=== PATIENT | male | born 1995 | race African-American/Black ===

== ENCOUNTER 2017-03-05 09:22 | Day surgery (SDC) | payer OTHER ==
[2017-03-04 14:23] VITALS: BMI 24.4
[2017-03-05] MEDS ORDERED: Midazolam HCl 2 mg/2 ml Vial ONE (09:49)
[2017-03-05] MEDS ORDERED: Fentanyl 100 MCG/2 ML VIAL ONE (09:49)
[2017-03-05] MEDS ORDERED: Diprivan 20 ML ONE (10:23)
[2017-03-05] MEDS ORDERED: diphenhydrAMINE HCl 50 MG/ML 1 ML VIAL ONE (10:52)
[2017-03-05] MEDS ORDERED: Lidocaine 1% PF 5 ML VIAL ONE (10:52)
[2017-03-05] MEDS ORDERED: Propofol 200 MG/20 ML VIAL ONE (10:52)
[2017-03-05] MEDS ORDERED: Ketorolac Tromethamine 30 MG/ML VIAL ONE (10:52)
[2017-03-05] MEDS ORDERED: Ondansetron HCl/PF 4 MG/2 ML Vial ONE (10:52)
[2017-03-05] MEDS ORDERED: Dexamethasone 20 MG/5 ML VIAL ONE (10:52)
[2017-03-05] MEDS ORDERED: Metoclopramide HCl 10 MG/2 ML VIAL ONE (10:52)
--- NOTE | 2017-03-05 13:06 | OP ---
DATE OF OPERATION: 03/05/2017 PREOPERATIVE DIAGNOSIS: Left knee posterior horn medial meniscus tear. POSTOPERATIVE DIAGNOSIS: Left knee posterior horn medial meniscus tear. PROCEDURE PERFORMED: Left knee arthroscopy with repair of posterior horn medial meniscus. SURGEON: John Fitzpatrick M.D. ANALYTICAL STATISTICIAN: None. BLOOD LOSS: Minimal. COMPLICATIONS: None. DISPOSITION: He went to the recovery room in stable condition. ANESTHESIA: The patient had general anesthetic as well as a local knee block. INDICATIONS: A 21-year-old male who has been having problems with occasional sharp pain and swellin g of the knee. MRI scan showed him to have a posterior horn medial meniscus tear and at this time h e opted to have surgery. DESCRIPTION OF PROCEDURE: After all appropriate consent forms were explained and signed, he was micah en to the operating room and at this time was given general anesthetic. Tourniquet was placed on th e left thigh and leg was placed in an arthroscopic leg castellanos. At this time, the left lower extremi ty was then prepped and draped in standard surgical fashion. Limb was exsanguinated and tourniquet taken up to 250 mmHg. An inferolateral portal was established and the scope was placed into the kne e joint. A needle localization technique was then used to make a medial working portal. Diagnostic arthroscopy commenced in the notch ACL that had been previously grafted, it was found to be intact. There was a synovial fold over top of this and left this alone. PCL was intact. The medial dakota rtment found the medial femoral condyle to be in good condition and upon probing the superior aspect of the medial meniscus capsular junction was intact, but the undersurface was found to be torn and this was found to be torn between right where the posterior horn turned into the body and the majori ty of the posterior horn, but the medial meniscal root was completely stable. The scope was placed into the back of the knee joint behind the medial femoral condyle and there was an area where the po sterior horn and capsule was found to be torn and it was again as the posterior horn went back into the body. The root was found to be stable. No other abnormalities were noted behind the femur. Sc ope was then put back into the notch and at this time we went through the gutter. No loose bodies w ere noted. Patellofemoral joint was found to be completely intact and the lateral compartment was e valuated and found to be intact as well. At this time, we then took shaver on the undersurface of t he medial meniscus and roughen this up for later healing. We then removed our scope into the medial portal and through the lateral portal. We placed our first SpeedCinch device placing a mattress st yle suture as the posterior horn turns into the body. Once this was tightened, this really firmed u p our meniscus and was gotten to the point where the hole tear was found to be stable. Secondary to the length of this; however, it was decided to put another SpeedCinch device more posterior to this . In the area of the straight posterior horn through the medial portal at this time, another SpeedC inch device was placed again in horizontal mattress fashion. Once this had been tightened, the meni scus was probed and found to be intact and at this time we decided not to place any more fixation de vices as none were needed for stability. At this time, the scope was then removed and the knee was drained. Portals were closed with simple nylon stitch and a bulky sterile dressing was applied. A knee immobilizer was then applied to the left lower extremity. The patient was awakened and he was taken to the recovery room in stable condition. All counts were correct at the end of the case and he did receive preoperative IV antibiotics.
== END 2017-03-05 14:38 | disposition home or self-care (01) ==
LOC: SDC 09:22
PROVIDERS: ATTEND Orthopaedic Surgery
PROC: 0SQD4ZZ Repair Left Knee Joint, Percutaneous Endoscopic Approach (ICD-10-PCS; principal; 2017-03-05)
DX: M23.92 Unspecified internal derangement of left knee (principal); M72.2 Plantar fascial fibromatosis
CPT/HCPCS: G8978-GP-CK; G8979-GP-CK; G8980-GP-CK; J0131; J1100; J1200; J1885; J2001; J2250; J2405; J2704; J2765; J3010

== ENCOUNTER 2017-07-01 17:00 | Outpatient (CLI) | payer OTHER | END 2017-07-01 17:01 | disposition home or self-care (01) | LOC: BICMRI 17:00 | PROVIDERS: ATTEND Orthopaedic Surgery | DX: M25.562 Pain in left knee (principal); S83.512A Sprain of anterior cruciate ligament of left knee, initial encounter; S83.222A Peripheral tear of medial meniscus, current injury, left knee, initial encounter ==

== ENCOUNTER 2017-07-30 08:05 | Day surgery (SDC) | payer OTHER ==
[2017-07-29 16:54] VITALS: BMI 24.4
[2017-07-30] MEDS ORDERED: PROPOFOL 20 ML ONE (08:18)
[2017-07-30] MEDS ORDERED: CEFAZOLIN/Water 2 GM/20 ML SYRINGE ONE (09:52)
[2017-07-30] MEDS ORDERED: Fentanyl 100 MCG/2 ML VIAL ONE (09:55)
--- NOTE | 2017-07-30 11:02 | OP ---
DATE OF PROCEDURE: 07/30/2017 PREOPERATIVE DIAGNOSIS: Left knee with a medial meniscus tear as well as clinically what was felt to be a nonfunctional ACL reconstruction, but on MRI had intact graft fibers. POSTOPERATIVE DIAGNOSES: 1. Tear of the posterior horn and body of medial meniscus with a large flap component. 2. ACL graft with some intact tissue, but essentially nonfunctional based on intraoperative exam. PROCEDURE PERFORMED: Left knee arthroscopy with partial medial meniscectomy. SURGEON: John Fitzpatrick M.D. ACID PUMP OPERATOR: None. BLOOD LOSS: Minimal. COMPLICATIONS: None. He did have general anesthetic. He also had local knee block. DISPOSITION: He did go to the recovery room in stable condition. INDICATIONS: A 22-year-old male who had an ACL reconstruction done at [facility] and last year he tore his medial meniscus which was repaired and recently approximately a month ago, he had a new injury to his left knee with unknown MRI scan, which was found to have another medial meniscus tear. This one more towards the body with a flap component as well as what appeared to be some fibers of h is graft intact, but I did tell the patient I thought he probably had a nonfunctional ACL. He did summers ve general anesthetic. He had a local block. There was minimal blood loss and no complications. He did go to recovery room in stable condition. DESCRIPTION OF PROCEDURE: After appropriate consent forms were explained and signed, Demarcus was micah en back to the operating room and at this time was given a general anesthetic. Exam under anesthesia showed him to pivot on the left knee. At this time, tourniquet was placed in the left thigh and the leg was placed in an arthroscopic leg castellanos. Limb was then prepped and draped in standard surgical fashion. Limb was then exsanguinated, tourniquet taken to 300 mmHg. Previously made, a lateral por dayna was again used for a lateral portal. Scope was placed into the knee joint. A needle localizatio n technique was then used to make a medial working portal. Diagnostic arthroscopy commenced in the n otch. There were some fibers of the ACL that were found to be present. Majority of them looked to g o towards the PCL and actually scarred down to the PCL. There were some fibers that I could visualiz e going up into the hole, but for the most part this was not what I would consider to be a well-funct ioning graft based on his exam under anesthesia as well as his appearance. Again before surgery, fede rivera was talked about and my recommendation was to undergo a revision ACL reconstruction, Demarcus did no t wish for this. At this time, we turned our attention to the medial compartment. The femur and tib ia were probed and found to be in good condition. No significant cartilage loss was noted. There wa s a large flap tear of the medial meniscus posterior horn and body. This was brought out into the paty int. Partial meniscectomy was performed using meniscal biter and shaver. Once this was done, there were no more loose components of the meniscus. No more torn tissue was noted. Remaining meniscus wa s intact upon probing. At this time, we turned our attention to the lateral compartment and this was found to be in good condition. We then went through the gutters. There is some scar tissue from pr evious surgeries. No treatment was needed. No loose bodies noted. Patellofemoral joint showed the trochlea to be in overall good condition and the patella did have some crabmeat appearance which was gently removed with the shaver. At this time, scope was removed, knee was drained. Portals closed w ith nylon stitches. A bulky sterile dressing was applied and the tourniquet let down. Toes pinked u p nicely. The patient was then awakened. He was taken to the recovery room in stable condition. Al l counts were correct at the end of the case and he did receive preoperative IV antibiotics.
[2017-07-30] MEDS ORDERED: Bupivacaine HCl 0.5%/Epinephrine 1:200,000/PF 30 ml Vial ONE (16:08)
[2017-07-30] MEDS ORDERED: Lidocaine 2% w/Epinephrine 1:200K 20 ML VIAL ONE (16:08)
[2017-07-30] MEDS ORDERED: Dexamethasone 20 MG/5 ML VIAL ONE (16:36)
[2017-07-30] MEDS ORDERED: PROPOFOL 200 MG/20 ML VIAL ONE (16:36)
[2017-07-30] MEDS ORDERED: Ketorolac Tromethamine 30 MG/ML VIAL ONE (16:36)
[2017-07-30] MEDS ORDERED: Glycopyrrolate 0.2 MG/ML 5 ML SYRINGE ONE (16:36)
[2017-07-30] MEDS ORDERED: Ondansetron PF 4 MG/2 ML Vial ONE (16:36)
== END 2017-07-30 12:30 | disposition home or self-care (01) ==
LOC: SDC 08:05
PROVIDERS: ATTEND Orthopaedic Surgery
PROC: 0SBD4ZZ Excision of Left Knee Joint, Percutaneous Endoscopic Approach (ICD-10-PCS; principal; 2017-07-30)
DX: M23.222 Derangement of posterior horn of medial meniscus due to old tear or injury, left knee (principal); Z98.890 Other specified postprocedural states
CPT/HCPCS: J0670; J1100; J1885; J2405; J2704; J3010

== ENCOUNTER 2018-01-21 15:09 | Outpatient (CLI) | payer OTHER ==
--- NOTE | 2018-01-22 10:23 | MRI ---
MRI RIGHT FOOT WITHOUT CONTRAST: INDICATIONS: Sprain of the tarsometatarsal joint. FINDINGS: The Lisfranc ligament is nearly completely torn. The dorsal and interosseous components are nonvisib le. A few fibers of the plantar based band likely remain intact, but the majority of the plantar bas e band appears fully disrupted. There is no apparent offset at the second metatarsal, middle cuneifo rm, or fourth metatarsals cuboid alignment. There is some diffuse marrow edema involving the base of the second, third, and fourth metatarsals and some joint effusion seen at the Lisfranc joint. There is mild great toe MTP osteoarthritic change. There are some degenerative changes involving the tibi al great toe sesamoid. There is mild edema involving the cuneiforms. There is enthesopathic change off the anterior aspect of the talar neck. The sinus tarsi has a normal signal intensity. The plant ar fascia and intrinsic foot musculature appear within normal limits. A mild amount of fluid is seen within the peroneus brevis tendon sheath. IMPRESSION: 1. Near complete disruption of the plantar band of the Lisfranc ligament. A few fibers are seen to be intact, along the plantar aspect of the band itself; however, the majority of the ligament appears disrupted. The dorsal and interosseous components of the Lisfranc ligament appear disrupted. 2. Traumatic effusion of the Lisfranc joint with contusions involving the base of the second, third, and fourth metatarsals, as well as portions of the cuneiforms. POS: [facility]
== END 2018-01-21 15:10 | disposition home or self-care (01) ==
LOC: TBSIIMAG 15:09
PROVIDERS: ATTEND Orthopaedic Surgery
DX: S93.621A Sprain of tarsometatarsal ligament of right foot, initial encounter (principal)